=== PATIENT | female | born 1990 | race Two or more races ===

== ENCOUNTER 2020-07-26 17:45 | Emergency (ER) | payer BC ==
[~2020-07-26] VITALS: Ht 165.1 cm; Wt 70.3 kg
[2020-07-26 19:05] VITALS: BP 124/76
== END 2020-07-26 20:16 | disposition home or self-care (01) ==
LOC: ER 17:48
DX: S00.81XA Abrasion of other part of head, initial encounter (principal); R51.9 Headache, unspecified; E86.0 Dehydration; X50.9XXA Other and unspecified overexertion or strenuous movements or postures, initial encounter; Y93.89 Activity, other specified; Y92.89 Other specified places as the place of occurrence of the external cause; Y99.8 Other external cause status
CPT/HCPCS: 70450